=== PATIENT | female | born 1970 | race Caucasian/White ===

== ENCOUNTER 2018-07-30 13:07 | Outpatient (CLI) | payer MEDICARE, MEDICAID ==
--- NOTE | 2018-07-30 15:47 | MRI ---
MRI LUMBAR SPINE WITHOUT CONTRAST: Date: 07/30/18 HISTORY: Back pain, bilateral leg pain for several years. COMPARISON: None. TECHNIQUE: MRI lumbar spine is performed without intravenous Gadolinium administration. Multisequential, multipl matti imaging is performed. FINDINGS: Despite repeat imaging, there is motion degradation on multiple sequences. There is intrinsic T1 and T2 hyperintensity at the L2 level suggesting a large hemangioma occupying a majority of the L2 vertebral body. No significant STIR hyperintensity to suggest vertebral body tk a at this level. There is subtle T2 hyperintensity with associated T1 and T2 mixed signal intensity a t L4-L5, suggesting combination of Type I, Type II, and possibly even Type III Modic changes given so me evidence of hypointensity on both T1 and T2-weighted sequences. Symmetric signal intensity of the psoas muscles. Visualized solid organs have appropriate signal intensity. Conus medullaris terminates at the upper aspect of L1. T12-L1: Adequate disc hydration. No significant central canal stenosis. Foramina are patent. L1-L2: Adequate disc hydration. No significant central canal stenosis. Neural foramina are patent bilaterall y. L2-L3: Mild loss of disc space height. No significant posterior disc abnormality. No significant central can al stenosis. Mild right and left foraminal narrowing. L3-L4: Mild loss of disc space height. No significant posterior disc abnormality. No significant central can al stenosis. There may be disc material encroaching upon the left subarticular zone with partial obsc uration of the traversing left L4 nerve root. Mild right and mild to moderate left foraminal narrowin g. L4-L5: Desiccation with mild loss of disc space height. No high grade central canal stenosis. There is mild facet hypertrophy. Right neural foramen is patent. Mild left foraminal narrowing. L5-S1: No high grade central canal stenosis. Moderate right and mild left foraminal narrowing. IMPRESSION: Degenerative changes of lumbar spine as above. POS: [facility]
== END 2018-07-30 13:08 | disposition home or self-care (01) ==
LOC: TBSIIMAG 13:07
PROVIDERS: ATTEND Neurological Surgery
DX: M47.26 Other spondylosis with radiculopathy, lumbar region (principal)
CPT/HCPCS: 72148